=== PATIENT | female | born 1985 ===

== ENCOUNTER 2019-04-06 21:00 | Emergency (ER) | payer OTHER ==
[~2019-04-06] VITALS: Ht 162.6 cm; Wt 74.8 kg
[~2019-04-06 21:00] MED LIST: IBUPROFEN800 MG PO; LEVSIN/SL0.125 MG SL; MIRALAX510 GM PO; MOTRIN800 MG PO; ORPH100T PO
== END 2019-04-06 22:36 | disposition home or self-care (01) ==
LOC: ER 21:00
DX: N73.2 Unspecified parametritis and pelvic cellulitis (principal)